=== PATIENT | female | born 1980 | race Caucasian/White ===

== ENCOUNTER 2017-01-21 21:00 | Emergency (ER) | payer MEDICARE, OTHER | END 2017-01-21 21:20 | disposition home or self-care (01) | LOC: ER 21:00 | DX: S30.861A Insect bite (nonvenomous) of abdominal wall, initial encounter (principal); L03.311 Cellulitis of abdominal wall; W57.XXXA Bitten or stung by nonvenomous insect and other nonvenomous arthropods, initial encounter | CPT/HCPCS: 99282; 99283 ==

== ENCOUNTER 2017-02-09 01:21 | Observation (INO) | payer MEDICARE, OTHER ==
[~2017-02-09] VITALS: Ht 172.7 cm; Wt 158.0 kg
[2017-02-09 01:59] LABS: BASO # 0.1 10_X3_uL (0.0-0.1); BASO % 0.6 % (0.1-1.2); EOS # 0.3 10_X3_uL (0.0-0.4); EOS % 2.7 % (0.7-5.8); GRAN # 4.4 10_X3_uL (1.6-6.1); GRAN % 47.7 % (34.0-71.1); HEMATOCRIT 45.4 % (34-45); HEMOGLOBIN 15.5 g/dL (11.2-15.7); LYMPH # 3.8 10_X3_uL (1.2-3.7); LYMPH % 41.3 % (19.3-51.7); MEAN CORPUSCULAR HGB CONC 34.1 g/dL (32.0-36.0); MEAN CORPUSCULAR VOLUME 90.8 fL (79-95); MONO # 0.7 10_X3_uL (0.2-0.9); MONO % 7.7 % (4.7-12.5); PLATELET COUNT 172 x10_3/uL (182-369); RED CELL DISTRIBUTION WIDTH 12.9 % (11.7-14.4); WHITE BLOOD COUNT 9.2 x10_3/uL (4.0-10.0)
[2017-02-09 02:10] LABS: ALBUMIN 4.2 gm/dL (3.4-5.0); ALKALINE PHOSPHATASE 88 U/L (50-136); ALT/SGPT 71 U/L (3.5-33.9); AST/SGOT 59 U/L (7.04-26.96); BILIRUBIN,TOTAL 0.43 mg/dL (0.0-1.0); BLOOD UREA NITROGEN 13 mg/dL (7-18); CALCIUM 9.2 mg/dL (8.7-10.7); CARBON DIOXIDE 23 mmol/L (21-32); CREATINE KINASE 44 U/L (21-215); CREATININE 0.7 mg/dL (0.6-1.3); POTASSIUM 3.8 mmol/L (3.5-5.1); SODIUM 132 mmol/L (136-145); TOTAL PROTEIN 7.6 gm/dL (6.4-8.2)
[2017-02-09 02:19] LABS: GLUCOSE,RANDOM 463 mg/dL (70-99)
[2017-02-09 04:21] LABS: INR 1.1 (1.0-1.1); PARTIAL THROMBOPLASTIN TIME 24.1 SECONDS (21.8-28.4); PROTHROMBIN TIME (PATIENT) 11.1 SECONDS (9.6-10.8)
[2017-02-09 08:01] LABS: CKMB < 1.0 ng/ml (0.0-5.0); TROP-I < 0.30 NG/ML (0.00-0.30)
[2017-02-09 14:02] LABS: CKMB < 1.0 ng/ml (0.0-5.0); TROP-I < 0.30 NG/ML (0.00-0.30)
[2017-02-09 20:07] LABS: CKMB 1.2 ng/ml (0.0-5.0)
[2017-02-09 20:11] LABS: TROP-I < 0.30 NG/ML (0.00-0.30)
[2017-02-10 07:09] LABS: HEMATOCRIT 41.6 % (34-45); HEMOGLOBIN 13.9 g/dL (11.2-15.7); MEAN CORPUSCULAR HEMOGLOBIN 30.9 pg (27.0-33.0); MEAN CORPUSCULAR HGB CONC 33.4 g/dL (32.0-36.0); MEAN CORPUSCULAR VOLUME 92.4 fL (79-95); MEAN PLATELET VOLUME 11.9 fl (7.5-11.5); RED BLOOD COUNT 4.5 x10_6/uL (3.9-5.2); RED CELL DISTRIBUTION WIDTH 12.9 % (11.7-14.4); WHITE BLOOD COUNT 9.2 x10_3/uL (4.0-10.0)
[2017-02-10 07:33] LABS: CALCIUM 9.3 mg/dL (8.7-10.7); CARBON DIOXIDE 23 mmol/L (21-32); CREATININE 0.8 mg/dL (0.6-1.3); GLUCOSE,RANDOM 393 mg/dL (70-99); SODIUM 133 mmol/L (136-145)
[2017-02-10 07:35] LABS: BLOOD UREA NITROGEN 18 mg/dL (7-18)
== END 2017-02-10 16:05 | disposition home or self-care (01) ==
LOC: ER 01:21 → MS 03:24 → UNDODEPER 02-11 09:41
PROVIDERS: General Practice; ADMIT Family Medicine
DX: R07.89 Other chest pain (principal); M94.0 Chondrocostal junction syndrome [Tietze]; J44.9 Chronic obstructive pulmonary disease, unspecified; R74.8 Abnormal levels of other serum enzymes; E11.65 Type 2 diabetes mellitus with hyperglycemia; J84.9 Interstitial pulmonary disease, unspecified; I10 Essential (primary) hypertension; E86.0 Dehydration; Z79.899 Other long term (current) drug therapy; Z79.4 Long term (current) use of insulin; Z79.82 Long term (current) use of aspirin
CPT/HCPCS: 36415; 71010; 80048; 80053; 80061; 82550; 82553; 82962; 83036; 85025; 85610; 85730; 93005; 93041; 93306; 94640; 96372; 96374; 96375; 96376; 99070; 99284; 99285-25; G0378; J7040